=== PATIENT | female | born 1960 | race Caucasian/White ===

== ENCOUNTER 2017-01-24 16:54 | Emergency (ER) | payer OTHER, MEDICARE, MEDICAID ==
[~2017-01-24] VITALS: Ht 165.1 cm; Wt 72.7 kg
[~2017-01-24 16:54] MED LIST: CALC-3 PO; L.AC1CAP6 PO; OMEP40CA36 PO; POLY17PO6 PO; SIMV10TA4 PO; TIZA2TAB3 PO
[2017-01-24 16:57] VITALS: BP 125/77; PULSE 69; RESP 16; O2SAT 99
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
[2017-01-24] MEDS ORDERED: oxyCODONE-Acetamin 5-325 mg Tablet PO ONE (18:40)
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
[2017-01-24 21:13] VITALS: RESP 18
== END 2017-01-24 21:13 | disposition home or self-care (01) ==
LOC: SED 16:54
DX: S16.1XXA Strain of muscle, fascia and tendon at neck level, initial encounter (principal); S29.019A Strain of muscle and tendon of unspecified wall of thorax, initial encounter; V43.52XA Car driver injured in collision with other type car in traffic accident, initial encounter; Y93.89 Activity, other specified; Y92.410 Unspecified street and highway as the place of occurrence of the external cause; Y99.8 Other external cause status; F17.200 Nicotine dependence, unspecified, uncomplicated; Z88.0 Allergy status to penicillin; Z88.8 Allergy status to other drugs, medicaments and biological substances
CPT/HCPCS: 72072; 72125; 96372; 99284; J1885

== ENCOUNTER 2017-02-11 19:13 | Emergency (ER) | payer OTHER, MEDICARE, MEDICAID ==
[~2017-02-11] VITALS: Ht 165.1 cm; Wt 72.7 kg
[2017-02-11 19:23] VITALS: BP 113/77; PULSE 74; RESP 16; O2SAT 99
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
[2017-02-11] MEDS ORDERED: _oxyCODONE/APAP 5-325 mg Tablet PO PRN (21:00)
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
[2017-02-11 22:31] VITALS: BP 134/79; PULSE 71; RESP 20; O2SAT 99
== END 2017-02-11 22:31 | disposition home or self-care (01) ==
LOC: SED 19:13
DX: S69.90XD Unspecified injury of unspecified wrist, hand and finger(s), subsequent encounter (principal); V43.52XD Car driver injured in collision with other type car in traffic accident, subsequent encounter; Y93.89 Activity, other specified; Y92.410 Unspecified street and highway as the place of occurrence of the external cause; Y99.8 Other external cause status; F17.200 Nicotine dependence, unspecified, uncomplicated; Z88.0 Allergy status to penicillin; Z88.5 Allergy status to narcotic agent; Z88.8 Allergy status to other drugs, medicaments and biological substances
CPT/HCPCS: 73110; 73200; 96372; 99284; J1885